=== PATIENT | female | born 1935 | race Hispanic/Latino ===

== ENCOUNTER 2017-12-04 09:19 | Inpatient (IN) | payer MEDICARE ==
[2017-12-04 09:41] VITALS: BMI 37.4
--- NOTE | 2017-12-04 09:57 | C.PDOC ---
History Of Present Illness 82 y/o female with history of A-fib and Asthma brought to ED by EMS and daughter in law with c/o chest pain intermittently for 2 weeks worse today and weakness for "weeks". Patient was given 4 baby aspirin on route and reports she was supposed to have a holter monitor but chest pain worsened prompting visit to ED. Patient admits to x1 episode of vomiting today and denies head injury, sob, cough or any other complaints at this time. Time Seen by Provider: 12/04/17 09:31 Chief Complaint (Nursing): Chest Pain History Per: Patient History/Exam Limitations: no limitations Onset/Duration Of Symptoms: Days Current Symptoms Are (Timing): Still Present Past Medical History Reviewed: Historical Data, Nursing Documentation, Vital Signs Vital Signs: Last Vital Signs Temp 97.6 F 12/04/17 09:42 Pulse 72 12/04/17 09:42 Resp 18 12/04/17 09:42 BP 117/67 12/04/17 09:42 Pulse Ox 95 12/04/17 10:08 - Medical History PMH: Arthritis, Asthma, Atrial Fibrillation Surgical History: Cholecystectomy - [facility] Procedures ANAL FISTULECTOMY (05/02/13) ANOSCOPY (05/02/13) ENDOSC POLYPECTOMY OF LG INTEST (04/07/13) ESOPHAGOGASTRODUODENOSCOPY [EGD] W/CLOSED BIOPSY (03/24/13) HEMORRHOID PROCEDURE NEC (05/02/13) INFLUENZA VACCINATION (05/02/13) INJECT/INFUSE NEC (02/13/14) PACKED CELL TRANSFUSION (03/24/13) PROCTOPEXY NEC (05/02/13) Family History: States: No Known Family Hx - Social History Hx Alcohol Use: No Hx Substance Use: No Review Of Systems Constitutional: Negative for: Fever, Chills Cardiovascular: Positive for: Chest Pain Respiratory: Negative for: Cough, Shortness of Breath Gastrointestinal: Positive for: Vomiting. Negative for: Abdominal Pain Neurological: Positive for: Weakness. Negative for: Numbness Physical Exam - Physical Exam Appears: Non-toxic, No Acute Distress Skin: Warm, Dry, No Rash Head: Atraumatic, Normacephalic Oral Mucosa: Moist Neck: Supple Chest: Symmetrical Cardiovascular: Rhythm Regular Respiratory: Normal Breath Sounds, No Rales, No Rhonchi, No Wheezing Gastrointestinal/Abdominal: Soft, Tenderness (Epigastric), No Guarding, No Rebound Extremity: Capillary Refill (<2 seconds), No Deformity, Other (non pitting edema on right lower leg) Neurological/Psych: Oriented x3, Normal Speech, Normal Motor, Normal Sensation ED Course And Treatment - Laboratory Results Result Diagrams: 12/04/17 09:56 12/04/17 09:56 O2 Sat by Pulse Oximetry: 95 (RA) Pulse Ox Interpretation: Normal Medical Decision Making Medical Decision Making: Progress: Call out to Dr. Paredes Called stress test office and patient is not on schedule for holter but are able to put patient on schedule if she is hospitalized D/W Dr. Aguirre who agrees for patient to be admitted under hospitalist service Disposition Discussed With DrLarissa: Kiersten Yañez - Disposition Disposition Time: 10:31 Condition: STABLE Forms: [facility] (Moldovan) - Clinical Impression Clinical Impression: Chest pain - Scribe Statement The provider has reviewed the documentation as recorded by the Scribarnoldo Mancera All medical record entries made by the Scribe were at my direction and personally dictated by me. I have reviewed the chart and agree that the record accurately reflects my personal performance of the history, physical exam, medical decision making, and the department course for this patient. I have also personally directed, reviewed, and agree with the discharge instructions and disposition. Decision To Admit - Pt Status Changed To: Hospital Disposition Of: Observation - . Bed Request Type: Telemetry Patient Diagnosis: Chest pain
[2017-12-04 10:04] LABS: BASO % 0.8 % (0.0-2.0); EOS # 0.1 K/uL (0.0-0.7); EOS % 1.9 % (0.0-4.0); HEMOGLOBIN 12.6 g/dL (11.0-16.0); LYMPH # 1.4 K/uL (1.0-4.3); LYMPH % 26.7 % (20.0-40.0); MEAN CELL VOLUME 96.2 fL (81.0-99.0); MEAN CORPUSCULAR HEMOGLOBIN 31.8 pg (27.0-31.0); MEAN CORPUSCULAR HGB CONC 33.1 g/dL (33.0-37.0); MEAN PLATELET VOLUME 8.9 fL (7.2-11.7); MONO # 0.4 K/uL (0.0-0.8); NEUT # 3.3 K/uL (1.8-7.0); NEUT % 62.6 % (50.0-75.0); NRBC % 0.2 % (0.0-2.0); RBC 3.96 Mil/uL (3.80-5.20); RED CELL DISTRIBUTION WIDTH 14.2 % (11.5-14.5); WHITE BLOOD COUNT 5.3 K/uL (4.8-10.8)
--- NOTE | 2017-12-04 10:22 | RAD ---
PROCEDURE: CHEST RADIOGRAPH, 1 VIEW HISTORY: Chest pain COMPARISON: None available. FINDINGS: LUNGS: The lungs are well inflated. There is mild pulmonary venous congestion. No focal consolidation. PLEURA: No pneumothorax or pleural fluid seen. CARDIOVASCULAR: There is mild cardiomegaly. Atherosclerotic aortic arch calcifications are present. OSSEOUS STRUCTURES: No significant abnormalities. VISUALIZED UPPER ABDOMEN: Normal. OTHER FINDINGS: None. IMPRESSION: No active pulmonary disease.
[2017-12-04 10:24] LABS: ALB/GLOB RATIO 1.1 (1.0-2.1); ALBUMIN 3.2 g/dL (3.5-5.0); ALT/SGPT 31 U/L (9-52); AST/SGOT 40 U/L (14-36); BLOOD UREA NITROGEN 31 mg/dL (7-17); GFR AFRICAN-AMERICAN > 60; GFR NON-AFRICAN AMERICAN 53
[2017-12-04 10:32] LABS: B-TYPE NATRIURETIC PEPTIDE 1430 pg/mL (0-900)
[2017-12-04] MEDS ORDERED: Potassium Chloride 20 mEq ER Tab PO ONE ×2 (12:06→12:25)
[2017-12-04 12:44] LABS: INR 1.3; PROTHROMBIN TIME 14.3 SECONDS (9.7-12.2)
--- NOTE | 2017-12-04 14:50 | CP.PCM.HP ---
<Damon Perrin - Last Filed: 12/04/17 21:18> History of Present Illness - History of Present Illness History of Present Illness: 80 yr old Female w/ PMHx of Afib, HTN, thrombocytopenia presents to ED for 1 day history of chest pain & 2 weeks of feeling weak and SOB. Pt states pain is 6/10, focused in left side chest and abdominal region. Pt states pain is fluctuating in nature and had 1 episode of vomiting 1 day prior. Additionally , pt had fallen down on Thursday w. no LOC and head trauma. Pt additionally had left elbow rash. Pt states denies headaches, vision changes, weight changes. Present on Admission - Present on Admission Any Indicators Present on Admission: No Review of Systems - Constitutional Constitutional: Weakness. absent: Chills, Daytime Sleepiness, Headache - EENT Eyes: absent: Blurred Vision, Discharge - Cardiovascular Cardiovascular: Chest Pain. absent: Pain Radiating to Arm/Neck/Jaw, Palpitations, Rapid Heart Rate, Syncope - Respiratory Respiratory: Dyspnea. absent: Cough, Wheezing - Gastrointestinal Gastrointestinal: absent: Constipation, Diarrhea - Genitourinary Genitourinary: absent: Hematuria, Urinary Frequency - Neurological Neurological: absent: Behavioral Changes, Burning Sensations, Confusion, Numbness - Psychiatric Psychiatric: absent: Confusion, Depression, Hallucinations Past Patient History - Past Medical History & Family History Past Medical History?: Yes - Past Social History Smoking Status: Never Smoked Chewing Tobacco Use: No Cigar Use: No Alcohol: None Drugs: Denies - CARDIAC Hx Atrial Fibrillation: Yes - PULMONARY Hx Asthma: Yes - NEUROLOGICAL Hx Neurological Disorder: No - HEENT Hx HEENT Problems: Yes - RENAL Hx Chronic Kidney Disease: No - ENDOCRINE/METABOLIC Hx Endocrine Disorders: No Hx Diabetes Mellitus Type 2: No (Denies) - HEMATOLOGICAL/ONCOLOGICAL Hx Human Immunodeficiency Virus (HIV): No - INTEGUMENTARY Hx Dermatological Problems: No - MUSCULOSKELETAL/RHEUMATOLOGICAL Hx Falls: No - GASTROINTESTINAL Hx Gastrointestinal Disorders: No - GENITOURINARY/GYNECOLOGICAL Hx Genitourinary Disorders: No - PSYCHIATRIC Hx Substance Use: No - SURGICAL HISTORY Hx Cholecystectomy: Yes - ANESTHESIA Hx Anesthesia: Yes Hx Anesthesia Reactions: No Hx Malignant Hyperthermia: No Meds Allergies/Adverse Reactions: Allergies Allergy/AdvReac Type Severity Reaction Status Date / Time No Known Allergies Allergy Verified 12/04/17 09:41 Physical Exam - Constitutional Appears: Well, No Acute Distress - Head Exam Head Exam: ATRAUMATIC, NORMAL INSPECTION, NORMOCEPHALIC - Eye Exam Eye Exam: EOMI, Normal appearance Pupil Exam: PERRL - ENT Exam ENT Exam: Mucous Membranes Moist - Neck Exam Neck exam: Positive for: Normal Inspection - Respiratory Exam Respiratory Exam: Clear to Auscultation Bilateral. absent: Rales, Rhonchi, Wheezes - Cardiovascular Exam Cardiovascular Exam: Irregular Rhythm, +S1, +S2 - GI/Abdominal Exam GI & Abdominal Exam: Normal Bowel Sounds, Soft - Extremities Exam Extremities exam: Positive for: pedal pulses present Additional comments: B/L LE lymphedema, Venous insufficiency, varicose veins, - Neurological Exam Neurological exam: Alert, CN II-XII Intact, Oriented x3 - Psychiatric Exam Psychiatric exam: Normal Affect, Normal Mood - Skin Skin Exam: Dry, Intact, Normal Color, Warm Additional comments: Pt has erythematous rash on left elbow. Pt additionally has a 2 X 1/2 inch Results - Vital Signs Recent Vital Signs: Last Vital Signs Temp 98 F 12/04/17 13:06 Pulse 68 12/04/17 14:00 Resp 18 12/04/17 13:06 BP 110/71 12/04/17 13:06 Pulse Ox 98 12/04/17 13:06 - Labs Result Diagrams: 12/04/17 09:56 12/04/17 09:56 Labs: Laboratory Results - last 24 hr 12/04/17 12/04/17 12/04/17 09:56 09:56 12:18 WBC 5.3 RBC 3.96 Hgb 12.6 Hct 38.1 MCV 96.2 MCH 31.8 H MCHC 33.1 RDW 14.2 Plt Count 117 L MPV 8.9 Neut % (Auto) 62.6 Lymph % (Auto) 26.7 Mcdonald % (Auto) 8.0 Eos % (Auto) 1.9 Baso % (Auto) 0.8 Neut # (Auto) 3.3 Lymph # (Auto) 1.4 Mcdonald # (Auto) 0.4 Eos # (Auto) 0.1 Baso # (Auto) 0.0 Differential Comment PT INR D-Dimer, Quantitative Sodium 143 Potassium 3.1 L Chloride 106 Carbon Dioxide 25 Anion Gap 15 BUN 31 H Creatinine 1.0 Est GFR ( Amer) > 60 Est GFR (Non-Af Amer) 53 Random Glucose 130 H Hemoglobin A1c 5.2 Calcium 9.0 Magnesium 1.8 Total Bilirubin 1.9 H AST 40 H D ALT 31 Alkaline Phosphatase 128 H D Troponin I 0.0400 NT-Pro-B Natriuret Pep 1430 H Total Protein 6.3 Albumin 3.2 L Globulin 3.0 Albumin/Globulin Ratio 1.1 12/04/17 12:21 WBC RBC Hgb Hct MCV MCH MCHC RDW Plt Count MPV Neut % (Auto) Lymph % (Auto) Mcdonald % (Auto) Eos % (Auto) Baso % (Auto) Neut # (Auto) Lymph # (Auto) Mcdonald # (Auto) Eos # (Auto) Baso # (Auto) Differential Comment PT 14.3 H INR 1.3 D-Dimer, Quantitative 564 H Sodium Potassium Chloride Carbon Dioxide Anion Gap BUN Creatinine Est GFR ( Amer) Est GFR (Non-Af Amer) Random Glucose Hemoglobin A1c Calcium Magnesium Total Bilirubin AST ALT Alkaline Phosphatase Troponin I NT-Pro-B Natriuret Pep Total Protein Albumin Globulin Albumin/Globulin Ratio Assessment & Plan - Assessment and Plan (Free Text) Assessment: 1) Chest Pain - observation to telemetry - cardiac enzyme, Q6 hrs X2, EKG - EKG: Atrial Fibrillation HR: 70s - cardiology: Dr. Hollingsworth - on board 2) Atrial fibrillation - chronic - CHADS: 4 - Rate control: metoprolol XL 25 mg PO QD 3) Hypertension - Lasix 20 mg PO - Metopolol XL 25 mg PO QD - Heart healthy diet - 2 gram diet 4) Arthritis - Leflunomide 10mg QD not formulary, per pharmacy - no similar substitutions, suggested for pt to bring from home 5) Left elbow rash - elbow xray 6) Thrombocytopenia, mild - noded chart 7) hypokalemia - Kdur 40mg X1 - Mg 2+ - 1.8 8) Weakness - PT/OT eval 9) Prophylactic measure - Pepcid 20 mg PO BID - F/u code status <Kiersten Yañez V - Last Filed: 12/04/17 22:06> Results - Vital Signs Recent Vital Signs: Last Vital Signs Temp 97.5 F L 12/04/17 16:00 Pulse 61 12/04/17 16:41 Resp 20 12/04/17 16:00 BP 111/64 07/06/18 16:00 Pulse Ox 97 12/04/17 20:00 - Labs Result Diagrams: 12/04/17 09:56 12/04/17 09:56 Labs: Laboratory Results - last 24 hr 12/04/17 12/04/17 12/04/17 09:56 09:56 12:18 WBC 5.3 RBC 3.96 Hgb 12.6 Hct 38.1 MCV 96.2 MCH 31.8 H MCHC 33.1 RDW 14.2 Plt Count 117 L MPV 8.9 Neut % (Auto) 62.6 Lymph % (Auto) 26.7 Mcdonald % (Auto) 8.0 Eos % (Auto) 1.9 Baso % (Auto) 0.8 Neut # (Auto) 3.3 Lymph # (Auto) 1.4 Mcdonald # (Auto) 0.4 Eos # (Auto) 0.1 Baso # (Auto) 0.0 Differential Comment PT INR D-Dimer, Quantitative Sodium 143 Potassium 3.1 L Chloride 106 Carbon Dioxide 25 Anion Gap 15 BUN 31 H Creatinine 1.0 Est GFR ( Amer) > 60 Est GFR (Non-Af Amer) 53 Random Glucose 130 H Hemoglobin A1c 5.2 Calcium 9.0 Magnesium 1.8 Total Bilirubin 1.9 H AST 40 H D ALT 31 Alkaline Phosphatase 128 H D Total Creatine Kinase CK-MB (Mass) Troponin I 0.0400 NT-Pro-B Natriuret Pep 1430 H Total Protein 6.3 Albumin 3.2 L Globulin 3.0 Albumin/Globulin Ratio 1.1 12/04/17 12/04/17 12/04/17 12:21 15:51 20:52 WBC RBC Hgb Hct MCV MCH MCHC RDW Plt Count MPV Neut % (Auto) Lymph % (Auto) Mcdonald % (Auto) Eos % (Auto) Baso % (Auto) Neut # (Auto) Lymph # (Auto) Mcdonald # (Auto) Eos # (Auto) Baso # (Auto) Differential Comment PT 14.3 H INR 1.3 D-Dimer, Quantitative 564 H Sodium Potassium Chloride Carbon Dioxide Anion Gap BUN Creatinine Est GFR ( Amer) Est GFR (Non-Af Amer) Random Glucose Hemoglobin A1c Calcium Magnesium Total Bilirubin AST ALT Alkaline Phosphatase Total Creatine Kinase 36 42 CK-MB (Mass) 1.21 1.26 Troponin I 0.0320 0.0340 NT-Pro-B Natriuret Pep Total Protein Albumin Globulin Albumin/Globulin Ratio Attending/Attestation - Attestation I have personally seen and examined this patient.: Yes I have fully participated in the care of the patient.: Yes I have reviewed all pertinent clinical information: Yes Notes (Text): Patient seen, examined and case discussed with day-time resident. Patient at bedside in the Emergency Room accompanied with her at bedside. Discussed with ED attending, Dr Jordan, patient of Dr. Aguirre's requesting for Hospitalist admission; has attempted to called patient's private claims assistant, Dr. Branch but unable to reach. There is a discrepancy about if patient was recommended for Holter. Per family, she was scheduled and was to meet Dr. Paredes on . Patient noted for hx including obesity, hypertension, arthritis, unsteady gait, mild thrombocytopenia, Nsaid induced gastritis. Patient noted to feeling weak, tired and recent fall over the weekend, but did not hit her head. Examined the patient with the resident: there is not apparent bruising over the legs, hips, arms. Patient has varcosities over the bilateral ankles and appears to be soft tissue masses over the right ankle. Patient noted for mild bruise over the low back and left elbow has flat erythema over the cubital area. Head: NCAT, EOMI, noted cataracts in both eyes, pleasant, speaks in jordanian dry mucus chest: s1, s2, irregular, irregular, No jvd noted. Abdomen: soft nontender obese habitus, no rigidity no guarding, no echevarria;s sign Hips: nontender; no bruising Extremities: lymphedema, nonpitting skin: there is not apparent bruising over the legs, hips, arms. Patient has varcosities over the bilateral ankles and appears to be soft tissue masses over the right ankle. Patient noted for mild bruise over the low back and left elbow has flat erythema over the cubital area. 1) Chest Pain Assessment/Plan * observation to telemetry * cardiac enzyme, Q6 hrs X2, EKG * EKG: Atrial Fibrillation HR: 70s * I have attempted to call Dr. Paredes both on work and personal cell-->he is away and therefore cannot confirm Holter; nor does he come to [facility] * Cardiology (Dr. Hollingsworth)-->discussed with him since patient's personal claims assistant noted available; recommends to monitor on telemetry for 24 hours and observe for arrhthymias. * Patient noted in prior hospitalization for bloody stool; no workup, had been started on PPi and evaluated by her claims assistant at that standpoint including no NSAID/will hold chemical anticoagulation 2) Atrial fibrillation - chronic Assessment/Plan * CHADS: 4 * Patient noted in prior hospitalization for bloody stool; no workup, had been started on PPi and evaluated by her claims assistant at that standpoint including no NSAID/will hold chemical anticoagulation * HASBLED: 1 * Order for echocardiogram * Rate control: metoprolol XL 25 mg PO QD 3) Hypertension Assessment/Plan * Lasix 20 mg PO daily * Metopolol XL 25 mg PO QD * Heart healthy diet - 2 gram diet 4) Arthritis Assessment/Plan * noted for severe arthritis in prior cardiology noted from prior admission, avoid NSAIDs given stomach pain * Leflunomide 10mg QD not formulary, per pharmacy - no similar substitutions, suggested for pt to bring from home 5) Left elbow rash Assessment/Plan * rule out fracture given recent fall * hold steroid based cream 6) Thrombocytopenia, mild Assessment/Plan * noted in prior admission had normalized on discharge * Mild * Observe 7) Hypokalemia Assessment/Plan * repleted in the ED, monitor potassium and magnesium and replete when necessary * Mg 2+ - 1.8 8) Weakness Assessment/Plan * PT/OT eval * noted hx of unsteady gait and severe osteoarthritis 9) Elevated probnp Assessment/Plan * no prior hx of overt chf per prior cardiology noted * ordered for echocardiogram 10) Elevated d-dimer Assessment/Plan * risk factor: obesity * CT angio r/o PE * gentle hydration 50cc/hr until midnight 11) Prophylactic measure Assessment/Plan * Pepcid 20 mg PO BID * Hold chemical anticoagulation in light of thrombocytopenia and prior hx of bloody stool * SCDS b/l while in bed * Gentle IV hydration to d/c at midnight
[2017-12-04 16:19] LABS: CK-MB 1.21 ng/mL (0.0-3.38); TROPONIN I 0.032 ng/mL (0.00-0.120)
[2017-12-04 21:20] LABS: CK-MB 1.26 ng/mL (0.0-3.38); TROPONIN I 0.034 ng/mL (0.00-0.120)
[2017-12-04] MEDS ORDERED: Sodium Chloride 0.9% 1,000 ML IV SCH (21:45)
[2017-12-04] MEDS ORDERED: Iodixanol 320 MG/ML 100 ML BOTTLE IV ONE (23:11)
--- NOTE | 2017-12-04 23:18 | CP.PCM.CON ---
History of Present Illness - History of Present Illness History of Present Illness: Patient seen and evaluated In A Flutter 1:4 block High CHADS score and needs full therapeutic anticoagulation Can use Lovenox or IV Heparin COLBY/Cardioversion on Thursday Check TSH, Troponins, Pro BMP Lytes ECHO Past Patient History - Past Medical History & Family History Past Medical History?: Yes - Past Social History Smoking Status: Never Smoked Chewing Tobacco Use: No Cigar Use: No Alcohol: None Drugs: Denies - CARDIAC Hx Atrial Fibrillation: Yes - PULMONARY Hx Asthma: Yes - NEUROLOGICAL Hx Neurological Disorder: No - HEENT Hx HEENT Problems: Yes - RENAL Hx Chronic Kidney Disease: No - ENDOCRINE/METABOLIC Hx Endocrine Disorders: No Hx Diabetes Mellitus Type 2: No (Denies) - HEMATOLOGICAL/ONCOLOGICAL Hx Human Immunodeficiency Virus (HIV): No - INTEGUMENTARY Hx Dermatological Problems: No - MUSCULOSKELETAL/RHEUMATOLOGICAL Hx Falls: No - GASTROINTESTINAL Hx Gastrointestinal Disorders: No - GENITOURINARY/GYNECOLOGICAL Hx Genitourinary Disorders: No - PSYCHIATRIC Hx Substance Use: No - SURGICAL HISTORY Hx Cholecystectomy: Yes - ANESTHESIA Hx Anesthesia: Yes Hx Anesthesia Reactions: No Hx Malignant Hyperthermia: No Meds Allergies/Adverse Reactions: Allergies Allergy/AdvReac Type Severity Reaction Status Date / Time No Known Allergies Allergy Verified 12/04/17 09:41 - Medications Medications: Current Medications Furosemide (Lasix) 20 mg PO DAILY [facility] Sodium Chloride (Sodium Chloride 0.9%) 1,000 mls @ 50 mls/hr IV .Q20H YESSI Stop: 12/05/17 00:01 Last Admin: 12/04/17 21:54 Dose: 50 mls/hr Metoprolol Succinate (Toprol Xl) 25 mg PO DAILY [facility] Results - Vital Signs Recent Vital Signs: Last Vital Signs Temp 97.5 F L 12/04/17 16:00 Pulse 61 12/04/17 16:41 Resp 20 12/04/17 16:00 BP 111/64 12/04/17 16:00 Pulse Ox 97 12/04/17 20:00 - Labs Result Diagrams: 12/05/17 07:51 12/05/17 07:51 Labs: Laboratory Results - last 24 hr 12/04/17 12/04/17 12/04/17 09:56 09:56 12:18 WBC 5.3 RBC 3.96 Hgb 12.6 Hct 38.1 MCV 96.2 MCH 31.8 H MCHC 33.1 RDW 14.2 Plt Count 117 L MPV 8.9 Neut % (Auto) 62.6 Lymph % (Auto) 26.7 Stokes % (Auto) 8.0 Eos % (Auto) 1.9 Baso % (Auto) 0.8 Neut # (Auto) 3.3 Lymph # (Auto) 1.4 Stokes # (Auto) 0.4 Eos # (Auto) 0.1 Baso # (Auto) 0.0 Differential Comment PT INR D-Dimer, Quantitative Sodium 143 Potassium 3.1 L Chloride 106 Carbon Dioxide 25 Anion Gap 15 BUN 31 H Creatinine 1.0 Est GFR ( Amer) > 60 Est GFR (Non-Af Amer) 53 Random Glucose 130 H Hemoglobin A1c 5.2 Calcium 9.0 Magnesium 1.8 Total Bilirubin 1.9 H AST 40 H D ALT 31 Alkaline Phosphatase 128 H D Total Creatine Kinase CK-MB (Mass) Troponin I 0.0400 NT-Pro-B Natriuret Pep 1430 H Total Protein 6.3 Albumin 3.2 L Globulin 3.0 Albumin/Globulin Ratio 1.1 12/04/17 12/04/17 12/04/17 12:21 15:51 20:52 WBC RBC Hgb Hct MCV MCH MCHC RDW Plt Count MPV Neut % (Auto) Lymph % (Auto) Stokes % (Auto) Eos % (Auto) Baso % (Auto) Neut # (Auto) Lymph # (Auto) Stokes # (Auto) Eos # (Auto) Baso # (Auto) Differential Comment PT 14.3 H INR 1.3 D-Dimer, Quantitative 564 H Sodium Potassium Chloride Carbon Dioxide Anion Gap BUN Creatinine Est GFR ( Amer) Est GFR (Non-Af Amer) Random Glucose Hemoglobin A1c Calcium Magnesium Total Bilirubin AST ALT Alkaline Phosphatase Total Creatine Kinase 36 42 CK-MB (Mass) 1.21 1.26 Troponin I 0.0320 0.0340 NT-Pro-B Natriuret Pep Total Protein Albumin Globulin Albumin/Globulin Ratio
[2017-12-05 07:59] LABS: BASO % 0.9 % (0.0-2.0); EOS # 0.1 K/uL (0.0-0.7); EOS % 2.2 % (0.0-4.0); HEMOGLOBIN 12.2 g/dL (11.0-16.0); LYMPH # 1.7 K/uL (1.0-4.3); LYMPH % 30.8 % (20.0-40.0); MEAN CELL VOLUME 96.1 fL (81.0-99.0); MEAN CORPUSCULAR HEMOGLOBIN 32.9 pg (27.0-31.0); MEAN CORPUSCULAR HGB CONC 34.2 g/dL (33.0-37.0); MEAN PLATELET VOLUME 8.8 fL (7.2-11.7); MONO # 0.4 K/uL (0.0-0.8); MONO % 7.8 % (0.0-10.0); NEUT # 3.1 K/uL (1.8-7.0); NEUT % 58.3 % (50.0-75.0); NRBC % 0.1 % (0.0-2.0); RBC 3.71 Mil/uL (3.80-5.20); RED CELL DISTRIBUTION WIDTH 14.7 % (11.5-14.5); WHITE BLOOD COUNT 5.4 K/uL (4.8-10.8)
[2017-12-05 08:12] LABS: ALB/GLOB RATIO 1.1 (1.0-2.1); ALBUMIN 3.1 g/dL (3.5-5.0); ALT/SGPT 35 U/L (9-52); AST/SGOT 41 U/L (14-36); BLOOD UREA NITROGEN 26 mg/dL (7-17); CALCIUM 8.5 mg/dl (8.6-10.4); GFR AFRICAN-AMERICAN > 60; GFR NON-AFRICAN AMERICAN > 60; HDL CHOLESTEROL 42 mg/dL (30-70)
[2017-12-05 08:23] LABS: LDL CHOLESTEROL 43 mg/dL (0-129)
[2017-12-05] MEDS: Metoprolol Succinate 25 mg XL Tab PO SCH (09:19)
[2017-12-05] MEDS ORDERED: Enoxaparin 40 mg Syringe SC SCH (10:00)
[2017-12-05] MEDS ORDERED: Enoxaparin 80 mg Syringe SC SCH (10:00)
[2017-12-05] MEDS: Heparin25000 units/250ml 1/2NS 25,000 UNITS/250 ML BAG IV PRN ×2 (12:13→23:35)
--- NOTE | 2017-12-05 12:45 | CP.PCM.PN ---
Subjective - Date & Time of Evaluation Date of Evaluation: 12/05/17 Time of Evaluation: 12:45 - Subjective Subjective: Patient seen and examined. Objective - Vital Signs/Intake and Output Vital Signs (last 24 hours): Temp Pulse Resp BP Pulse Ox 97.7 F 67 20 123/73 99 12/05/17 08:06 12/05/17 08:06 12/05/17 08:06 12/05/17 09:19 12/05/17 08:06 Intake and Output: 12/05/17 12/05/17 06:59 18:59 Intake Total 400 Balance 400 - Medications Medications: Current Medications Aspirin (Ecotrin) 81 mg PO DAILY [facility] Last Admin: 12/05/17 09:18 Dose: 81 mg Furosemide (Lasix) 20 mg PO DAILY [facility] Last Admin: 12/05/17 09:19 Dose: 20 mg Heparin Sodium/Sodium Chloride (Heparin 88085 Units/250ml 1/2 Normal Saline) 25 ,000 units in 250 mls @ 11.866 mls/hr IV .Q21H5M PRN; Protocol; 12 UNITS/KG/HR PRN Reason: PROTOCOL Last Admin: 12/05/17 12:13 Dose: 12 units/kg/hr, 11.866 mls/hr Metoprolol Succinate (Toprol Xl) 25 mg PO DAILY [facility] Last Admin: 12/05/17 09:19 Dose: 25 mg - Labs Labs: 12/05/17 07:51 12/05/17 07:51 PT 14.3 SECONDS (9.7-12.2) H 12/04/17 12:21 INR 1.3 12/04/17 12:21
--- NOTE | 2017-12-05 12:50 | CARD ---
APPROVED REPORT EXAM: Two-dimensional and M-mode echocardiogram with Doppler and color Doppler. Other Information Quality : GoodRhythm : INDICATION Atrial Fibrillation Chest Pain 2D DIMENSIONS IVSd1.9 (0.7-1.1cm)Aortic Root (2D)3.2 (2.0-3.7cm) LVDd3.5 (3.9-5.9cm)LVOT Diameter1.9 (1.8-2.4cm) PWd1.8 (0.7-1.1cm)LVDs2.7 (2.5-4.0cm) FS (%) 23.5 %LVEF (%)47.9 (>50%) M-Mode DIMENSIONS Left Atrium (MM)4.86 (2.5-4.0cm)Aortic Root3.08 (2.2-3.7cm) Aortic Cusp Exc.1.30 (1.5-2.0cm) Mitral Valve MV E Xbkfpaic951.4cm/sMV A Uynkwjpf45.8cm/sMV [id number] E/A ratio2.6MVA (PHT)2.01cm2 TDI E/Lateral E'0.0E/Medial E'0.0 Pulmonary Valve PV Peak Syozeohb10.0cm/sPV Peak Grad.2mmHg Tricuspid Valve TR Peak Vgwariga599vf/sTR Peak Gr.[id number] LEFT VENTRICLE The left ventricle is normal size. There is normal left ventricular wall thickness. The systolic function is mildly impaired. No Regional wall motion abnormalities noted. Transmitral Doppler flow pattern is Grade II-pseudonormal filling dynamics. RIGHT VENTRICLE The right ventricle is normal size. There is normal right ventricular wall thickness. The right ventricular systolic function is normal. ATRIA The left atrium is mildly dilated. The right atrium size is normal. AORTIC VALVE The aortic valve is moderately thickened. No aortic regurgitation is present. There is no aortic valvular stenosis. MITRAL VALVE The mitral valve is moderately thickened. Mitral regurgitation is mild. TRICUSPID VALVE There is mild pulmonary hypertension. GREAT VESSELS The aortic root is normal in size. The IVC collapses <50% with inspiration. <Conclusion> The left ventricle is normal size. There is normal left ventricular wall thickness. The systolic function is mildly impaired. No Regional wall motion abnormalities noted. Transmitral Doppler flow pattern is Grade II-pseudonormal filling dynamics. Mitral regurgitation is mild. There is mild pulmonary hypertension.
--- NOTE | 2017-12-05 12:52 | CT ---
PROCEDURE: CTA chest with contrast (Pulmonary Angiogram) HISTORY: Elevated dimer, weakness COMPARISON: Correlation made with concurrent chest radiograph. TECHNIQUE: Contiguous helical/transaxial computed tomography images were obtained of the chest in the pulmonary arterial phase of enhancement. Coronal and sagittal reformatted images were created and reviewed. Intravenous contrast dose: 100 cc Visipaque 320 the Radiation dose: Total exam DLP = 540.41 mGy-cm. This CT exam was performed using one or more of the following dose reduction techniques: Automated exposure control, adjustment of the mA and/or kV according to patient size, and/or use of iterative reconstruction technique. . FINDINGS: PULMONARY ARTERIES: No evidence of large central pulmonary embolus. Pulmonary trunk measures approximately 3.0 cm OTHER FINDINGS: Cholecystectomy. Pancreas is atrophic and fatty replaced AORTA: . The ascending thoracic aorta is mildly ectatic measuring approximately 3.9 cm. Descending thoracic aorta measures approximately 2.8 cm. LUNGS: Mild passive/dependent type atelectasis both posterior lower lung zones. Minor scarring changes also seen in the the upper lobe and lingular region. PLEURAL SPACES: Unremarkable. No effusion or pneumothorax HEART: Heart is enlarged. No significant pericardial effusion. LYMPH NODES: No significant mediastinal or hilar lymphadenopathy. BONES, CHEST WALL: Multilevel degenerative spondylosis of the thoracic spine. The there are no acute compression fractures no retropulsed fragments. OTHER FINDINGS: Cholecystectomy. Pancreas is atrophic and fatty replaced IMPRESSION: No evidence of acute central pulmonary embolus. Cardiomegaly. Minor scarring changes seen in the left upper lobe and lingular region. Cholecystectomy. Pancreas is atrophic and fatty replaced
--- NOTE | 2017-12-05 13:54 | CP.PCM.PN ---
Subjective - Date & Time of Evaluation Date of Evaluation: 12/05/17 Time of Evaluation: 13:00 - Subjective Subjective: Medical attending note: patient seen and examined. Patient seen at bedside. Patient's daughter in law, Anneliese Flores at bedside assisting in translation, Gu[place]ese. Patient denies headache, denies chest pain, reports weakness, reports epigastric abdominal pain, aching, reports constipation, reports had a small bowel movement, denies bloody bowel movement, denies edema. 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 Patient has prior colonoscopy [address] Bueno. Objective - Vital Signs/Intake and Output Vital Signs (last 24 hours): Temp Pulse Resp BP Pulse Ox 97.7 F 67 20 123/73 99 12/05/17 08:06 12/05/17 08:06 12/05/17 08:06 12/05/17 09:19 12/05/17 08:06 Intake and Output: 12/05/17 12/05/17 06:59 18:59 Intake Total 400 Balance 400 - Medications Medications: Current Medications Aspirin (Ecotrin) 81 mg PO DAILY [facility] Last Admin: 12/05/17 09:18 Dose: 81 mg Furosemide (Lasix) 20 mg PO DAILY [facility] Last Admin: 12/05/17 09:19 Dose: 20 mg Heparin Sodium/Sodium Chloride (Heparin 73834 Units/250ml 1/2 Normal Saline) 25 ,000 units in 250 mls @ 11.866 mls/hr IV .Q21H5M PRN; Protocol; 12 UNITS/KG/HR PRN Reason: PROTOCOL Last Admin: 12/05/17 12:13 Dose: 12 units/kg/hr, 11.866 mls/hr Metoprolol Succinate (Toprol Xl) 25 mg PO DAILY [facility] Last Admin: 12/05/17 09:19 Dose: 25 mg - Labs Labs: 12/05/17 07:51 12/05/17 07:51 PT 14.3 SECONDS (9.7-12.2) H 12/04/17 12:21 INR 1.3 12/04/17 12:21 - Constitutional Appears: Non-toxic, No Acute Distress - Head Exam Head Exam: NORMAL INSPECTION - Eye Exam Eye Exam: EOMI - ENT Exam ENT Exam: Mucous Membranes Moist - Respiratory Exam Respiratory Exam: Decreased Breath Sounds, NORMAL BREATHING PATTERN. absent: Rales, Rhonchi, Wheezes - Cardiovascular Exam Cardiovascular Exam: REGULAR RHYTHM, +S1, +S2 - GI/Abdominal Exam GI & Abdominal Exam: Soft, Tenderness, Normal Bowel Sounds. absent: Distended, Firm, Guarding, Rigid, Rebound Additional comments: tender to palpation--epigastric - Extremities Exam Extremities Exam: absent: Pedal Edema, Tenderness - Neurological Exam Neurological Exam: Alert, Awake, Oriented x3 Neuro motor strength exam: Left Upper Extremity: 5, Right Upper Extremity: 5, Left Lower Extremity: 5, Right Lower Extremity: 5 - Psychiatric Exam Psychiatric exam: Normal Affect, Normal Mood - Skin Skin Exam: Dry, Normal Color, Warm Assessment and Plan (1) Atrial flutter Assessment & Plan: patient is on Toprol XL Cardiology Dr. kay on board Patient is on heparin drip (no hx of GI bleed per discussion w renee) CT angio negative for PE Status: Acute (2) Abdominal pain Assessment & Plan: Ct abdomen/pelvis PO contrast lipase amylase Status: Acute (3) Dehydration Assessment & Plan: gentle iv hydration overnight Status: Acute (4) Hypertension Assessment & Plan: toprol xl 25mg PO daily Status: Chronic (5) Thrombocytopenia Assessment & Plan: ordered for HIT/SAMPSON prior to starting chemical anticoagution Heparin drip Status: Acute (6) Prophylactic measure Assessment & Plan: heparin drip pepcid 20mg po bid full code Status: Acute
[2017-12-05 14:10] LABS: AMYLASE 42 U/L (30-110); LIPASE 111 U/L (23-300)
[2017-12-05] MEDS ORDERED: Iohexol 240 (50 ml) PO ONE (16:00)
--- NOTE | 2017-12-05 17:27 | US ---
HISTORY: abdominal pain, thrombocytopenia COMPARISON: None. TECHNIQUE: Sonographic evaluation of the abdomen. FINDINGS: LIVER: Measures 12.3 cm. Liver exhibits nodular surface contour and increased echotexture. Rule out chronic liver disease. No obvious hepatic mass or collection seen on images presented. Mass. No intrahepatic bile duct dilatation. GALLBLADDER: Cholecystectomy. 6.0 mm. No stones. No d spleen ilatation. PANCREAS: Atrophic and echogenic. No mass. No ductal dilatation. RIGHT KIDNEY: Measures 9.5 x 3.8 x 5.0cm. Normal echogenicity. No calculus, mass, or hydronephrosis. LEFT KIDNEY: Measures 9.5 x 4.2 x 4.3cm. Tiny at calcifications seen upper and midpole measuring 3 mm and 5 mm respectively. No hydronephrosis. Normal echogenicity. No mass. . SPLEEN: Spleen appears upper limits of normal in size AORTA: Not visualized IVC: Unremarkable. OTHER FINDINGS: None. IMPRESSION: Nodular appearing hepatic surface contour with increased echotexture. Rule out chronic liver disease. Borderline splenomegaly. Cholecystectomy. Nonobstructing calculi left kidney. Atrophic pancreas.
--- NOTE | 2017-12-05 23:23 | CP.PCM.PN ---
Subjective - Date & Time of Evaluation Date of Evaluation: 12/05/17 Time of Evaluation: 20:15 - Subjective Subjective: Patient seen and evaluated Comfortable A Flutter and rate controlled Objective - Vital Signs/Intake and Output Vital Signs (last 24 hours): Temp Pulse Resp BP Pulse Ox 97.7 F 78 20 141/83 100 12/05/17 16:00 12/05/17 18:00 12/05/17 16:00 12/05/17 16:00 12/05/17 16:00 - Medications Medications: Current Medications Aspirin (Ecotrin) 81 mg PO DAILY [facility] Last Admin: 12/05/17 09:18 Dose: 81 mg Famotidine (Pepcid) 20 mg PO BID [facility] Last Admin: 12/05/17 18:50 Dose: 20 mg Furosemide (Lasix) 20 mg PO DAILY [facility] Last Admin: 12/05/17 09:19 Dose: 20 mg Heparin Sodium/Sodium Chloride (Heparin 19523 Units/250ml 1/2 Normal Saline) 25 ,000 units in 250 mls @ 11.866 mls/hr IV .Q21H5M PRN; Protocol; 12 UNITS/KG/HR PRN Reason: PROTOCOL Last Admin: 12/05/17 12:13 Dose: 12 units/kg/hr, 11.866 mls/hr Metoprolol Succinate (Toprol Xl) 25 mg PO DAILY [facility] Last Admin: 12/05/17 09:19 Dose: 25 mg - Labs Labs: 12/05/17 07:51 12/05/17 07:51 PT 14.3 SECONDS (9.7-12.2) H 12/04/17 12:21 INR 1.3 12/04/17 12:21 APTT 133 SECONDS (21-34) H* D 12/05/17 22:02
[2017-12-06 05:33] LABS: BASO % 0.8 % (0.0-2.0); EOS # 0.1 K/uL (0.0-0.7); EOS % 3.3 % (0.0-4.0); HEMOGLOBIN 11.2 g/dL (11.0-16.0); LYMPH # 1.3 K/uL (1.0-4.3); LYMPH % 30.5 % (20.0-40.0); MEAN CELL VOLUME 96.3 fL (81.0-99.0); MEAN CORPUSCULAR HEMOGLOBIN 32.4 pg (27.0-31.0); MEAN CORPUSCULAR HGB CONC 33.7 g/dL (33.0-37.0); MEAN PLATELET VOLUME 8.2 fL (7.2-11.7); MONO # 0.4 K/uL (0.0-0.8); MONO % 8.5 % (0.0-10.0); NEUT # 2.4 K/uL (1.8-7.0); NEUT % 56.9 % (50.0-75.0); RBC 3.46 Mil/uL (3.80-5.20); RED CELL DISTRIBUTION WIDTH 15.1 % (11.5-14.5); WHITE BLOOD COUNT 4.3 K/uL (4.8-10.8)
[2017-12-06 05:52] LABS: ALBUMIN 2.6 g/dL (3.5-5.0); ALT/SGPT 36 U/L (9-52); AST/SGOT 42 U/L (14-36); BLOOD UREA NITROGEN 24 mg/dL (7-17); CALCIUM 8.5 mg/dl (8.6-10.4); GFR AFRICAN-AMERICAN > 60; GFR NON-AFRICAN AMERICAN > 60
[2017-12-06 08:14] LABS: HEPATITIS B SURFACE AG Negative (NEGATIVE)
[2017-12-06 08:20] LABS: HEPATITIS A IGM NEGATIVE (NEGATIVE); HEPATITIS B CORE AB NEGATIVE (NEGATIVE)
[2017-12-06 08:32] LABS: HEPATITIS C ANTIBODY NEGATIVE (NEGATIVE)
[2017-12-06] MEDS: Metoprolol Succinate 25 mg XL Tab PO SCH (09:26)
--- NOTE | 2017-12-06 11:06 | CP.PCM.PN ---
<Kiersten Yañez V - Last Filed: 12/06/17 17:40> Objective - Vital Signs/Intake and Output Vital Signs (last 24 hours): Temp Pulse Resp BP Pulse Ox 97.5 F L 71 20 125/67 96 12/06/17 08:41 12/06/17 12:00 12/06/17 08:41 12/06/17 09:25 12/06/17 08:41 Intake and Output: 12/06/17 12/06/17 06:59 18:59 Intake Total 250 548 Balance 250 548 - Medications Medications: Current Medications Aspirin (Ecotrin) 81 mg PO DAILY [facility] Last Admin: 12/06/17 09:26 Dose: 81 mg Famotidine (Pepcid) 20 mg PO BID [facility] Last Admin: 12/06/17 17:24 Dose: 20 mg Furosemide (Lasix) 20 mg PO DAILY [facility] Last Admin: 12/06/17 09:25 Dose: 20 mg Metoprolol Succinate (Toprol Xl) 25 mg PO DAILY [facility] Last Admin: 12/06/17 09:26 Dose: 25 mg - Labs Labs: 12/06/17 13:03 12/06/17 11:12 PT 14.3 SECONDS (9.7-12.2) H 12/04/17 12:21 INR 1.3 12/04/17 12:21 APTT 62 SECONDS (21-34) H D 12/06/17 11:12 Assessment and Plan (1) Atrial flutter Status: Acute (2) Abdominal pain Status: Acute (3) Dehydration Status: Acute (4) Hypertension Status: Chronic (5) Thrombocytopenia Status: Acute (6) Prophylactic measure Status: Acute Attending/Attestation - Attestation I have personally seen and examined this patient.: Yes I have fully participated in the care of the patient.: Yes I have reviewed all pertinent clinical information, including history, physical exam and plan: Yes Notes (Text): Assessment and Plan (1) Atrial flutter Atrial Fibrillation Assessment & Plan: * Case discussed with Dr. Hollingsworth today. He has spoken with Dr. Paredes who reports patient has a history of atrial fibrillation and atrial fluteer for many years. Patient is very high risk for COLBY cardioversion given underlying disease for AV node and recommends against it. COLBY cardioversion is canceled. I've also spoken with cardiology given thrombocytopenia while on heparin recommends to discontinue heparin and for only aspirin and SCDs. he reports the patient was off anticoagulation per primary signal inspector secondary history of falls * Resident has spoken with covering technical marketing consultant while Dr. Holguin, will, and evaluate the patient. We have updated him my conversation with cardiology today. * Toprol XL 225 mg once a day * heparin drip discontinued and later conversation with both cardiology and thrombocytopenia * aspirin 81 mg by mouth once a day Status: Acute (2) Abdominal pain Cirrhosis Assessment & Plan: * GI (Dr. Rodarte/Lew) help appreciated--> discussed with nurse; GI aware of consult * Ct abdomen/pelvis PO contrast (12/06/17): findings consistent with cirrhosis, spleen the upper limits of normal, ssmall to medium size of ventral hernia, cholecystectomy, nonobstructing calculi * Abdominal US (12/05/17): nodular appearing hepatic surface contour. Rule out chronic liver disease. Borderline splenomegaly. Cholecystectomy. Nonobstructing calculi left kidney. Atrophic pancreas. * Amylase lipase within normal Status: Acute (3) Dehydration Assessment & Plan: * Mild rise in BUN Status: Acute (4) Hypertension Assessment & Plan: * Toprol xl 25mg PO daily * Lasix 20mg PO daily Status: Chronic (5) Thrombocytopenia Assessment & Plan: * Hematology-Oncology (Dr. Hilda Holguin; Dr. Aviles covering this weekend) * patient noted to have mild thrombocytopenia prior to starting heparin drip. She was last in the hospital in 2017. He she does not take any chemical anticoagulation as outpatient secondary to falls. * Cardiology recommends to stop heparin drip given worsening thrombocytopenia and in light of conversation with patient's primary signal inspector * Ordered for HIT/SAMPSON prior to starting chemical anticoagution * Hepatitis panel: negative * HIV 1 and 2: negative * Possible cirrhosis? * Ct abdomen/pelvis PO contrast (12/06/17): findings consistent with cirrhosis, spleen the upper limits of normal, ssmall to medium size of ventral hernia, cholecystectomy, nonobstructing calculi Status: Acute (6) Prophylactic measure Assessment & Plan: * D/c Chemical anticoagulation-->thrombocytopenia and hx of falls * Pepcid 20mg po bid * full code * SCDS b/l * Patient speaks English; assistance in translation provided by Daughter, raymon Steel RN; her brother Pipe will be coming to cover. Status: Acute <Beth Espinoza - Last Filed: 12/06/17 22:54> Subjective - Date & Time of Evaluation Date of Evaluation: 12/06/17 Time of Evaluation: 11:06 - Subjective Subjective: Progress Note for Hospitalist service Patient seen and examined at bedside. History obtained via daughter Anneliese at bedside since patient only speaks particular dialect of English. She denies chest pain today, she states she feels a little short of breath. Denies headache , dizziness, palpitations, calf pain. she states she experiences some abdominal pain when she is straining during a BM. Daughter states that patient has a history of hemorrhoids and patient has noted some blood when she wipes. Patient's daughter Anneliese [phone]. Patient's son Kendall [phone] Objective - Vital Signs/Intake and Output Vital Signs (last 24 hours): Temp Pulse Resp BP Pulse Ox 97.5 F L 71 20 125/67 96 12/06/17 08:41 12/06/17 08:41 12/06/17 08:41 12/06/17 09:25 12/06/17 08:41 Intake and Output: 12/06/17 12/06/17 06:59 18:59 Intake Total 250 Balance 250 - Medications Medications: Current Medications Aspirin (Ecotrin) 81 mg PO DAILY [facility] Last Admin: 12/06/17 09:26 Dose: 81 mg Famotidine (Pepcid) 20 mg PO BID [facility] Last Admin: 12/06/17 09:26 Dose: 20 mg Furosemide (Lasix) 20 mg PO DAILY [facility] Last Admin: 12/06/17 09:25 Dose: 20 mg Heparin Sodium/Sodium Chloride (Heparin 44897 Units/250ml 1/2 Normal Saline) 25 ,000 units in 250 mls @ 11.866 mls/hr IV .Q21H5M PRN; Protocol; 12 UNITS/KG/HR PRN Reason: PROTOCOL Last Admin: 12/05/17 23:35 Dose: 6.06 units/kg/hr, 6 mls/hr Metoprolol Succinate (Toprol Xl) 25 mg PO DAILY [facility] Last Admin: 12/06/17 09:26 Dose: 25 mg - Labs Labs: 12/06/17 05:29 12/06/17 05:29 PT 14.3 SECONDS (9.7-12.2) H 12/04/17 12:21 INR 1.3 12/04/17 12:21 APTT 78 SECONDS (21-34) H D 12/06/17 05:29 - Constitutional Appears: Well, No Acute Distress - Head Exam Head Exam: ATRAUMATIC, NORMOCEPHALIC - Eye Exam Eye Exam: EOMI - ENT Exam ENT Exam: Mucous Membranes Moist - Neck Exam Neck Exam: Full ROM - Respiratory Exam Respiratory Exam: Clear to Ausculation Bilateral, NORMAL BREATHING PATTERN. absent: Rales, Rhonchi, Wheezes - Cardiovascular Exam Cardiovascular Exam: +S1, +S2 - GI/Abdominal Exam GI & Abdominal Exam: Soft, Tenderness (epigastric), Normal Bowel Sounds. absent : Distended, Firm, Guarding - Extremities Exam Extremities Exam: absent: Calf Tenderness, Pedal Edema - Neurological Exam Neurological Exam: Alert, Awake, Oriented x3 - Skin Skin Exam: Dry, Intact, Warm Assessment and Plan - Assessment and Plan (Free Text) Assessment: 82 year old female with history of Atrial flutter currently evaluated for shortness of breath. Plan: Assessment/plan Atrial flutter, hx of A fib patient is on Toprol XL 25mg Cardiology Dr. hollingsworth on board Patient was initially heparin drip (no hx of GI bleed per discussion w daughter) CXR no active disease CT angio negative for PE ECHO The left ventricle is normal size. There is normal left ventricular wall thickness. The systolic function is mildly impaired. No Regional wall motion abnormalities noted. Transmitral Doppler flow pattern is Grade II-pseudonormal filling dynamics. Mitral regurgitation is mild. There is mild pulmonary hypertension. 12/05/17: Plan for COLBY/cardioversion on 12/07/17 12/06/17: Given patient has had a 5 year history of Afib/flutter, patient is at high risk for COLBY/cardioversion. Procedure cancelled by Dr. Hollingsworth. Dr. Hollingsworth recommended D/c Heparin drip, given patient's platelets were low. ASA 81mg PO SCDs Abdominal pain CT abdomen/pelvis PO contrast Findings consistent with cirrhosis. Spleen is upper limits of normal.Cholecystectomy.Appendix not seen with certainty and may have been resected however clinical correlation surgical history recommended.Small cystic structure left ovary. Follow-up pelvic ultrasound could be performed if necessary.Small to medium-sized ventral wall hernia mid to lower abdomen/pelvic region. .Nonobstructing calculi left kidney. Abdominal US Nodular appearing hepatic surface contour with increased echotexture. Rule out chronic liver disease. Borderline splenomegaly. Cholecystectomy. Nonobstructing calculi left kidney. Atrophic pancreas. lipase 111 amylase 42 Monitor for BM GI Dr. Hackett consulted, help appreciated. Hypertension Toprol xl 25mg PO daily Thrombocytopenia ordered for HIT/SAMPSON prior to starting chemical anticoagution Heparin drip D/rick Abdominal US Nodular appearing hepatic surface contour with increased echotexture. Rule out chronic liver disease. Borderline splenomegaly. Cholecystectomy. Nonobstructing calculi left kidney. Atrophic pancreas. Hep panel negative HIV negative HIT, SAMPSON f/u Hem/Onc Dr. Hair covering for Dr. Hloguin, consulted help appreciated. Discussed regarding switching from heparin to Agatroban due to thrombocytopenia , deferred to cardiology recs. Prophylactic measure SCDs pepcid 20mg po bid full code Beth Espinoza, GUY Case discussed with Dr. Yañez
[2017-12-06 11:39] LABS: ALBUMIN 2.8 g/dL (3.5-5.0); ALT/SGPT 29 U/L (9-52); AST/SGOT 38 U/L (14-36); BLOOD UREA NITROGEN 24 mg/dL (7-17); CALCIUM 8.4 mg/dl (8.6-10.4); GFR AFRICAN-AMERICAN > 60; GFR NON-AFRICAN AMERICAN > 60
[2017-12-06] MEDS ORDERED: Magnesium Sulfate 1 gm in D5W 1 GM/100 ML BAG IVPB ONE (11:42)
[2017-12-06 13:10] LABS: HEMOGLOBIN 12.4 g/dL (11.0-16.0); MEAN CELL VOLUME 97.5 fL (81.0-99.0); MEAN CORPUSCULAR HEMOGLOBIN 32.5 pg (27.0-31.0); MEAN CORPUSCULAR HGB CONC 33.4 g/dL (33.0-37.0); MEAN PLATELET VOLUME 8.9 fL (7.2-11.7); RBC 3.81 Mil/uL (3.80-5.20); RED CELL DISTRIBUTION WIDTH 14.8 % (11.5-14.5); WHITE BLOOD COUNT 5.1 K/uL (4.8-10.8)
--- NOTE | 2017-12-06 13:45 | CT ---
PROCEDURE: CT Abdomen and Pelvis with Oral contrast. HISTORY: Epigastric abdominal pain COMPARISON: None. TECHNIQUE: Contiguous axial images of the abdomen and pelvis. Oral contrast was administered. No IV contrast given. Coronal and Sagittal reformats generated. This CT exam was performed using one or more of the following dose reduction techniques: Automated exposure control, adjustment of the mA and/or kV according to patient size, and/or use of iterative reconstruction technique. Radiation dose: Total exam DLP = 1009.41 mGy-cm. FINDINGS: LOWER THORAX: Cardiomegaly. Small hiatal hernia. LIVER: Liver exhibits a nodular surface contour with mild prominence of the caudate lobe. Findings suggest cirrhosis. Clinical correlation recommended. No obvious hepatic mass or collection seen on this limited noncontrast exam GALLBLADDER AND BILE DUCTS: Cholecystectomy PANCREAS: Pancreas atrophic and fatty replaced. No obvious pancreatic mass collection or calcification. SPLEEN: Spleen upper limits of normal. No splenic masses collection or calcification. ADRENALS: Unremarkable. KIDNEYS AND URETERS: Kidneys demonstrate mass slightly nodular surface contour left greater than right. Tiny nonobstructing calcifications seen in the and lower poles of the left kidney. No evidence hydronephrosis. BLADDER: Urinary bladder incompletely distended . Correlation with urinalysis. REPRODUCTIVE: Uterus appears unremarkable however there does appear to be a small approximately 2.6 cm cystic structure left ovary. Pelvic ultrasound followup could be performed if necessary. APPENDIX: The appendix is not seen with certainty and may have been resected. There also metallic clips are seen adjacent to the cecum however these could have fallen into this location from prior cholecystectomy surgery. Clinical correlation recommended. BOWEL: Evaluation of the bowel is somewhat limited due to incomplete opacification. The stomach is nondistended which presumably in part accounts for thick-walled appearance. Gastritis or other intrinsic/invasive wall lesion cannot be excluded. PERITONEUM: Unremarkable. No fluid collection. No free air. Fat containing ventral wall hernia mid lower abdomen/pelvis region. LYMPH NODES: Unremarkable. No enlarged lymph nodes. VASCULATURE: Unremarkable. No aortic aneurysm. BONES: Multilevel degenerative spondylosis of the lower thoracic and lumbar spine. No acute compression fractures no retropulsed fragments. There is mild levoscoliosis centered in the upper lumbar region. OTHER FINDINGS: None. IMPRESSION: Findings consistent with cirrhosis. Spleen is upper limits of normal. Cholecystectomy. Appendix not seen with certainty and may have been resected however clinical correlation surgical history recommended. Small cystic structure left ovary. Follow-up pelvic ultrasound could be performed if necessary. Small to medium-sized ventral wall hernia mid to lower abdomen/pelvic region. . Nonobstructing calculi left kidney.
--- NOTE | 2017-12-06 22:44 | CP.PCM.PN ---
Subjective - Date & Time of Evaluation Date of Evaluation: 12/06/17 Time of Evaluation: 16:20 - Subjective Subjective: Patient seen and evaluated Episode of Non sustained runs of V tach No cardiac symptoms D/W Dr. Paredes regarding further management Hx of A Fib/flutter more than 5 years Not on anticoagulation due to recurrent falls Out patient f/u with Dr. Paredes for A Fib/Flutter F/u with my office in 1-2 weeks for Ward device eval Objective - Vital Signs/Intake and Output Vital Signs (last 24 hours): Temp Pulse Resp BP Pulse Ox 98 F 69 20 100/63 98 12/06/17 16:00 12/06/17 16:00 12/06/17 16:00 12/06/17 16:00 12/06/17 16:00 Intake and Output: 12/06/17 12/07/17 18:59 06:59 Intake Total 548 Balance 548 - Medications Medications: Current Medications Aspirin (Ecotrin) 81 mg PO DAILY [facility] Last Admin: 12/06/17 09:26 Dose: 81 mg Famotidine (Pepcid) 20 mg PO BID [facility] Last Admin: 12/06/17 17:24 Dose: 20 mg Furosemide (Lasix) 20 mg PO DAILY [facility] Last Admin: 12/06/17 09:25 Dose: 20 mg Metoprolol Succinate (Toprol Xl) 25 mg PO DAILY [facility] Last Admin: 12/06/17 09:26 Dose: 25 mg - Labs Labs: 12/06/17 13:03 12/06/17 11:12 PT 14.3 SECONDS (9.7-12.2) H 12/04/17 12:21 INR 1.3 12/04/17 12:21 APTT 62 SECONDS (21-34) H D 12/06/17 11:12
[2017-12-07 08:16] LABS: HEMOGLOBIN 11.4 g/dL (11.0-16.0); MEAN CELL VOLUME 96.3 fL (81.0-99.0); MEAN CORPUSCULAR HEMOGLOBIN 32.7 pg (27.0-31.0); MEAN PLATELET VOLUME 9.2 fL (7.2-11.7); RBC 3.48 Mil/uL (3.80-5.20); WHITE BLOOD COUNT 4.4 K/uL (4.8-10.8)
[2017-12-07 08:23] LABS: INR 1.3; PROTHROMBIN TIME 13.8 SECONDS (9.7-12.2)
[2017-12-07 08:38] LABS: ALB/GLOB RATIO 1.1 (1.0-2.1); ALBUMIN 2.9 g/dL (3.5-5.0); ALT/SGPT 34 U/L (9-52); AST/SGOT 39 U/L (14-36); BLOOD UREA NITROGEN 23 mg/dL (7-17); CALCIUM 8.7 mg/dl (8.6-10.4); GFR AFRICAN-AMERICAN > 60; GFR NON-AFRICAN AMERICAN > 60
[2017-12-07] MEDS: Metoprolol Succinate 25 mg XL Tab PO SCH (10:03)
--- NOTE | 2017-12-07 10:16 | CP.PCM.PN ---
Subjective - Date & Time of Evaluation Date of Evaluation: 12/07/17 Time of Evaluation: 10:13 - Subjective Subjective: Progress Note for Hospitalist service Patient seen and examined at bedside. She states she has occasional headaches, shortness of breath, palpitations. She states her abdominal pain has improved. She states she had some small BMs yesterday, but still constipated. She denies dizziness, chest pain, fevers, chills. Family not at bedside. Patient speaks specific dialect of [place]raini. Objective - Vital Signs/Intake and Output Vital Signs (last 24 hours): Temp Pulse Resp BP Pulse Ox 98.7 F 93 H 20 126/77 96 12/07/17 08:00 12/07/17 08:00 12/07/17 08:00 12/07/17 10:03 12/07/17 08:00 Intake and Output: 12/07/17 12/07/17 06:59 18:59 Intake Total 100 Balance 100 - Medications Medications: Current Medications Aspirin (Ecotrin) 81 mg PO DAILY [facility] Last Admin: 12/07/17 10:04 Dose: 81 mg Famotidine (Pepcid) 20 mg PO BID [facility] Last Admin: 12/07/17 10:03 Dose: 20 mg Furosemide (Lasix) 20 mg PO DAILY [facility] Last Admin: 12/07/17 10:03 Dose: 20 mg Metoprolol Succinate (Toprol Xl) 25 mg PO DAILY [facility] Last Admin: 12/07/17 10:03 Dose: 25 mg - Labs Labs: 12/07/17 08:02 12/07/17 08:02 PT 13.8 SECONDS (9.7-12.2) H 12/07/17 08:02 INR 1.3 12/07/17 08:02 APTT 32 SECONDS (21-34) D 12/07/17 08:02 - Constitutional Appears: Well, No Acute Distress - Head Exam Head Exam: ATRAUMATIC, NORMOCEPHALIC - Eye Exam Eye Exam: EOMI - ENT Exam ENT Exam: Mucous Membranes Moist - Respiratory Exam Respiratory Exam: Clear to Ausculation Bilateral, NORMAL BREATHING PATTERN. absent: Rales, Rhonchi, Wheezes - Cardiovascular Exam Cardiovascular Exam: REGULAR RHYTHM, +S1, +S2 - GI/Abdominal Exam GI & Abdominal Exam: Soft, Tenderness. absent: Distended, Firm, Guarding Additional comments: Minimal epigastric tenderness - Extremities Exam Extremities Exam: Calf Tenderness, Pedal Edema Additional comments: Diffuse lymphedema of right lower extremity > left. Diffuse tenderness of lower extremity. - Neurological Exam Neurological Exam: Awake, Oriented x3 - Skin Skin Exam: Dry, Intact Additional comments: Ecchymoses of forearms bilaterally from Iv access attempts. IV access on right hand
--- NOTE | 2017-12-07 16:01 | CARD ---
APPROVED REPORT EKG Measurement Heart [id number] <Conclusion> Atrial flutter with variable AV block Left axis deviation Left bundle branch block Abnormal ECG
[2017-12-07 16:19] VITALS: BP 103/66; PULSE 95; RESP 19; TEMP 99.5; O2SAT 92
--- NOTE | 2017-12-07 16:29 | CARD ---
APPROVED REPORT EKG Measurement Heart [id number] ID [id number] <Conclusion> Atrial flutter with 4:1 AV conduction Left axis deviation Left bundle branch block Abnormal ECG
--- NOTE | 2017-12-07 21:35 | CP.PCM.DIS ---
Provider - Provider Date of Admission: 12/05/17 11:13 Attending physician: Dev Walton MD Consults: Cardio: Darrick GI: Kieranler Heme/Onc: [place] Time Spent in preparation of Discharge (in minutes): 36 Hospital Course - Lab Results Lab Results: Most Recent Lab Values WBC 4.4 K/uL (4.8-10.8) L 12/07/17 08:02 RBC 3.48 Mil/uL (3.80-5.20) L 12/07/17 08:02 Hgb 11.4 g/dL (11.0-16.0) 12/07/17 08:02 Hct 33.6 % (34.0-47.0) L 12/07/17 08:02 MCV 96.3 fL (81.0-99.0) 12/07/17 08:02 MCH 32.7 pg (27.0-31.0) H 12/07/17 08:02 MCHC 34.0 g/dL (33.0-37.0) 12/07/17 08:02 RDW 15.0 % (11.5-14.5) H 12/07/17 08:02 Plt Count 86 K/uL (130-400) L 12/07/17 08:02 MPV 9.2 fL (7.2-11.7) 12/07/17 08:02 Neut % (Auto) 56.9 % (50.0-75.0) 12/06/17 05:29 Lymph % (Auto) 30.5 % (20.0-40.0) 12/06/17 05:29 Leon % (Auto) 8.5 % (0.0-10.0) 12/06/17 05:29 Eos % (Auto) 3.3 % (0.0-4.0) 12/06/17 05:29 Baso % (Auto) 0.8 % (0.0-2.0) 12/06/17 05:29 Neut # (Auto) 2.4 K/uL (1.8-7.0) 12/06/17 05:29 Lymph # (Auto) 1.3 K/uL (1.0-4.3) 12/06/17 05:29 Leon # (Auto) 0.4 K/uL (0.0-0.8) 12/06/17 05:29 Eos # (Auto) 0.1 K/uL (0.0-0.7) 12/06/17 05:29 Baso # (Auto) 0.0 K/uL (0.0-0.2) 12/06/17 05:29 Differential Comment 12/04/17 09:56 PT 13.8 SECONDS (9.7-12.2) H 12/07/17 08:02 INR 1.3 12/07/17 08:02 APTT 32 SECONDS (21-34) D 12/07/17 08:02 D-Dimer, Quantitative 564 ng/mlDDU (0-243) H 12/04/17 12:21 Sodium 141 mmol/L (132-148) 12/07/17 08:02 Potassium 3.9 mmol/L (3.6-5.2) 12/07/17 08:02 Chloride 105 mmol/L (98-107) 12/07/17 08:02 Carbon Dioxide 30 mmol/L (22-30) 12/07/17 08:02 Anion Gap 9 (10-20) L 12/07/17 08:02 BUN 23 mg/dL (7-17) H 12/07/17 08:02 Creatinine 0.8 mg/dL (0.7-1.2) 12/07/17 08:02 Est GFR ( Amer) > 60 12/07/17 08:02 Est GFR (Non-Af Amer) > 60 12/07/17 08:02 Random Glucose 93 mg/dL (65-105) 12/07/17 08:02 Hemoglobin A1c 5.2 % (4.2-6.5) 12/04/17 12:18 Calcium 8.7 mg/dl (8.6-10.4) 12/07/17 08:02 Phosphorus 2.7 mg/dL (2.5-4.5) 12/07/17 08:02 Magnesium 1.9 mg/dL (1.6-2.3) 12/07/17 08:02 Total Bilirubin 1.7 mg/dL (0.2-1.3) H 12/07/17 08:02 AST 39 U/L (14-36) H 12/07/17 08:02 ALT 34 U/L (9-52) 12/07/17 08:02 Alkaline Phosphatase 122 U/L (38-126) 12/07/17 08:02 Total Creatine Kinase 42 U/L (30-135) 12/04/17 20:52 CK-MB (Mass) 1.26 ng/mL (0.0-3.38) 12/04/17 20:52 Troponin I 0.0340 ng/mL (0.00-0.120) 12/04/17 20:52 NT-Pro-B Natriuret Pep 1430 pg/mL (0-900) H 12/04/17 09:56 Total Protein 5.6 g/dL (6.3-8.3) L 12/07/17 08:02 Albumin 2.9 g/dL (3.5-5.0) L 12/07/17 08:02 Globulin 2.7 gm/dL (2.2-3.9) 12/07/17 08:02 Albumin/Globulin Ratio 1.1 (1.0-2.1) 12/07/17 08:02 Triglycerides 112 mg/dL (0-149) 12/05/17 07:51 Cholesterol 121 mg/dL (0-199) 12/05/17 07:51 LDL Cholesterol Direct 43 mg/dL (0-129) 12/05/17 07:51 HDL Cholesterol 42 mg/dL (30-70) 12/05/17 07:51 Amylase 42 U/L (30-110) 12/05/17 07:51 Lipase 111 U/L (23-300) 12/05/17 07:51 TSH 3rd Generation 1.91 mIU/L (0.46-4.68) 12/05/17 07:51 Hepatitis A IgM Ab Negative (NEGATIVE) 12/05/17 19:13 Hep Bs Antigen Negative (NEGATIVE) 12/05/17 19:13 Hep B Core IgM Ab Negative (NEGATIVE) 12/05/17 19:13 Hepatitis C Antibody Negative (NEGATIVE) 12/05/17 19:13 HIV 1&2 Antibody Screen Negative (NEGATIVE) 12/05/17 19:13 - Hospital Course Hospital Course: Admitted 12/04/17 H&P 80 yr old Female w/ PMHx of Afib, HTN, thrombocytopenia presents to ED for 1 day history of chest pain & 2 weeks of feeling weak and SOB. Pt states pain is 6/10, focused in left side chest and abdominal region. Pt states pain is fluctuating in nature and had 1 episode of vomiting 1 day prior. Additionally , pt had fallen down on Thursday w. no LOC and head trauma. Pt additionally had left elbow rash. Pt states denies headaches, vision changes, weight changes. Hospital course: Patient was admitted for chest pain, weakness and shortness of breath. Patient was seen by Dental Technician Apprentice Dr. Hollingsworth who noted that patient was in Atrial flutter 1 :4 block. Cardiac enzymes x3 were negative. Patient was rate controlled on Toprol XL 25mg. Dental Technician Apprentice initially planned COLBY, and she was started on IV heparin drip, however it was noted that patient's platelets were dropping. Dr. Hollingsworth discussed case with Dr. Paredes - patient's garment fitter who stated that patient has had history of A fib/flutter for many years. Given that she is high risk for COLBY/cardioversion due to underlying AV aminta disease, COLBY/ cardioversion was cancelled. Heparin drip was discontinued to prevent worsening of thrombocytopenia. Hematolgy was consulted for thrombocytopenia, deferred to cardiology recommendations prior to procedure. Imaging CT abdomen/pelvis PO contrast (12/06/17): findings consistent with cirrhosis, spleen the upper limits of normal, s\small to medium size of ventral hernia, cholecystectomy, nonobstructing calculi Abdominal US (12/05/17): nodular appearing hepatic surface contour. Rule out chronic liver disease. Borderline splenomegaly. Cholecystectomy. Nonobstructing calculi left kidney. Atrophic pancreas. ECHO: The left ventricle is normal size. There is normal left ventricular wall thickness. The systolic function is mildly impaired. No regional wall motion abnormalities noted. Transmitral doppler flow pattern is Grade II pseudonormal filling dynamics. Mitral regurgitation is mild. there is mild pulmonary HTN. Discharge summary: Schedule follow up with PMD Dr. Lopez. Through Dr. Lopez, obtain referral for GI for workup of cirrhosis. Schedule follow up with Dental Technician Apprentice Dr. Hollingsworth by calling [phone] for an appointment in 1-2 weeks. Schedule follow up with Advertising Dispatch Clerk Dr. Anderson Holguin in 1-2 weeks by calling [phone]. Prescriptions to be provided Aspirin 81mg 1 tab PO once daily at 8am Furosemide 20mg 1 tab PO once daily at 8am Metoprolol XL 25mg 1 tab PO once daily at 2pm. Stop Leflunomide as this may cause low platelets. Discharge plan discussed with patient's daughter Anneliese over the phone. Discharge Exam - Head Exam Head Exam: ATRAUMATIC, NORMOCEPHALIC - Eye Exam Eye Exam: EOMI - ENT Exam ENT Exam: Mucous Membranes Moist - Respiratory Exam Respiratory Exam: Decreased Breath Sounds. absent: Rales, Rhonchi, Wheezes, Respiratory Distress, Stridor - Cardiovascular Exam Cardiovascular Exam: Irregular Rhythm, +S1, +S2 - GI/Abdominal Exam GI & Abdominal Exam: Normal Bowel Sounds, Soft. absent: Firm, Guarding, Tenderness - Extremities Exam Extremities exam: pedal edema Additional comments: Lymphedema on right lower extremity > left lower extremity. No calf tenderness. - Neurological Exam Neurological exam: Alert, CN II-XII Intact, Oriented x3 Discharge Plan - Discharge Medications Prescriptions: Aspirin [Ecotrin] 81 mg PO DAILY 30 Days #30 tabec Furosemide [Lasix] 20 mg PO DAILY 30 Days #30 tab Metoprolol Succinate XL [Toprol XL] 25 mg PO DAILY #30 tab - Follow Up Plan Condition: STABLE Disposition: HOME/ ROUTINE Instructions: Chest Pain (DC), Aspirin, Bleeding Precautions, Furosemide, Metoprolol, Atrial Flutter (DC), Acute Abdominal Pain (DC) Additional Instructions: Schedule follow up with PMD Dr. Lopez. Through Dr. Lopez, obtain referral for GI for workup of cirrhosis. Schedule follow up with Dental Technician Apprentice Dr. Hollingsworth by calling [phone] for an appointment in 1-2 weeks. Schedule follow up with Advertising Dispatch Clerk Dr. Anderson Holguin in 1-2 weeks by calling [phone]. Prescriptions to be provided Aspirin 81mg 1 tab PO once daily at 8am Furosemide 20mg 1 tab PO once daily at 8am Metoprolol XL 25mg 1 tab PO once daily at 2pm. Stop Leflunomide as this may cause low platelets. Discharge plan discussed with patient's daughter Anneliese over the phone. Referrals: Anderson Holguin MD [Staff Provider] - Dwain Hollingsworth MD [Staff Provider] - Michael Hackett MD [Staff Provider] -
--- NOTE | 2017-12-07 22:37 | CP.PCM.PN ---
Subjective - Date & Time of Evaluation Date of Evaluation: 12/07/17 Time of Evaluation: 10:05 - Subjective Subjective: Patient seen and evaluated denies chest pain and dyspnea Further management for A flutter and A Fib by Dr. Paredes Patient will f/u with me for [place] device plan Objective - Vital Signs/Intake and Output Vital Signs (last 24 hours): Temp Pulse Resp BP Pulse Ox 99.5 F 95 H 19 103/66 92 L 12/07/17 16:18 12/07/17 16:18 12/07/17 16:18 12/07/17 16:18 12/07/17 16:18 Intake and Output: 12/07/17 12/08/17 18:59 06:59 Intake Total 400 Balance 400 - Labs Labs: 12/07/17 08:02 12/07/17 08:02 PT 13.8 SECONDS (9.7-12.2) H 12/07/17 08:02 INR 1.3 12/07/17 08:02 APTT 32 SECONDS (21-34) D 12/07/17 08:02
== END 2017-12-07 18:26 | disposition home or self-care (01) | DRG 310 ==
LOC: C.ER 09:19 → C.9E 10:37 → C.5S 12:13 → OBSVTOIN 12-05 11:13
PROVIDERS: ADMIT Family Medicine; ATTEND Family Medicine
DX: I48.92 Unspecified atrial flutter (principal); I48.2 Chronic atrial fibrillation; I47.2 Ventricular tachycardia; J45.909 Unspecified asthma, uncomplicated; I34.0 Nonrheumatic mitral (valve) insufficiency; I27.20 Pulmonary hypertension, unspecified; I10 Essential (primary) hypertension; E87.6 Hypokalemia; K74.60 Unspecified cirrhosis of liver; E86.0 Dehydration; E66.9 Obesity, unspecified; K43.9 Ventral hernia without obstruction or gangrene; D69.6 Thrombocytopenia, unspecified; R29.6 Repeated falls; Z53.9 Procedure and treatment not carried out, unspecified reason; M19.90 Unspecified osteoarthritis, unspecified site; Z68.37 Body mass index [BMI] 37.0-37.9, adult